=== PATIENT | female | born 1985 | race Caucasian/White ===

== ENCOUNTER 2020-04-05 10:05 | Observation (INO) | payer OTHER, SELFPAY ==
[~2020-04-05] VITALS: Ht 154.9 cm; Wt 68.5 kg
[2020-04-05] MEDS ORDERED: FERR325E14 PO (10:32)
[2020-04-05] MEDS ORDERED: SYN.075 PO (10:32)
[2020-04-05] MEDS ORDERED: PNV91TAB10 PO (10:32)
== END 2020-04-05 13:55 | disposition home or self-care (01) ==
LOC: MLD 10:05
PROVIDERS: ADMIT Obstetrics & Gynecology; ATTEND Obstetrics & Gynecology
DX: O62.9 Abnormality of forces of labor, unspecified (principal); Z20.822 Contact with and (suspected) exposure to COVID-19; Z3A.38 38 weeks gestation of pregnancy
CPT/HCPCS: 59025; 76815; 81000; 87426; G0378